=== PATIENT | female | born 1935 | race Caucasian/White ===

== ENCOUNTER 2016-11-15 09:45 | Emergency (ER) | payer MEDICARE, MEDICAID | END 2016-11-15 12:41 | LOC: ER 09:45 | CPT/HCPCS: 36415; 70450; 80053; 80162; 80165; 80184; 80185; 81003; 82947; 85025 ==

== ENCOUNTER 2016-12-01 22:03 | Inpatient (IN) | payer MEDICARE, MEDICAID ==
[~2016-12-01] VITALS: Ht 162.6 cm; Wt 96.3 kg
[2016-12-01] MEDS ORDERED: ACETAMINOPHEN 650 MG SUPP RECTAL ONE (22:37)
[2016-12-01] MEDS ORDERED: ED DILTIAZEM DRIP 125 ML IV ONE (22:38)
[2016-12-01] MEDS ORDERED: CEFTRIAXONE 1 GM VIAL ONE (22:38)
[2016-12-01] MEDS ORDERED: SODIUM CHLORIDE 0.9% 100 ML IV ONE (22:39)
[2016-12-01] MEDS ORDERED: SODIUM CHLORIDE 0.9% 1,000 ML ONE (22:50)
[2016-12-02] VITALS (31 sets, daily range): BP systolic 60–142; RESP 14–25; TEMP 98.4–102.9; Ht 162.6 cm; Wt 96.3 kg
[2016-12-02] MEDS ORDERED: BISACODYL EC 5 MG TAB PO PRN (01:20)
[2016-12-02] MEDS ORDERED: BISACODYL 10 MG SUPP RECTAL PRN (01:20)
[2016-12-02] MEDS ORDERED: ALU/MAG/SIM 30 ML UDC PO PRN (01:20)
[2016-12-02] MEDS ORDERED: ACETAMINOPHEN 325 MG TAB PO PRN (01:20)
[2016-12-02] MEDS ORDERED: SODIUM CHLORIDE 0.9% 1,000 ML IV SCH (01:20)
[2016-12-02] MEDS ORDERED: MAG HYDROX 30 ML UDC PO PRN (01:20)
[2016-12-02] MEDS ORDERED: SALINE FLUSH 10 ML FLUSH PRN (01:20)
[2016-12-02] MEDS ORDERED: PHARMACY TO DOSE VANCOMYCIN IV SCH (01:30)
[2016-12-02] MEDS ORDERED: PHARMACY TO DOSE MERREM XX SCH (01:30)
[2016-12-02] MEDS ORDERED: VANCOMYCIN 2,000 MG in SODIUM CHLORIDE 0.9% 500 ML IV ONE (02:15)
[2016-12-02] MEDS: NEB-XOPENEX 1.25 MG/3 ML INH SCH ×6 (03:50→22:32)
[2016-12-02] MEDS ORDERED: MISSING DOSE XX ONE (04:45)
[2016-12-02] MEDS: CARDIZEM 1 MG/ML DRIP 125 ML IV SCH (04:58)
[2016-12-02] MEDS ORDERED: OPTIRAY 350 100 ML VIAL HMH IV ONE (05:51)
[2016-12-02] MEDS: SODIUM CHLORIDE 0.9% FLUSH BAG 500 ML IV SCH (06:49)
[2016-12-02] MEDS: LEVOTHYROXINE 0.15 MG TAB PO SCH (06:49)
[2016-12-02] MEDS ORDERED: ENOXAPARIN 40 MG/0.4 ML SYR SUBQ SCH (09:00)
[2016-12-02] MEDS ORDERED: DIVALPROEX DR 250 MG TAB PO SCH (09:00)
[2016-12-02] MEDS: SALINE FLUSH 10 ML FLUSH SCH ×2 (09:03→19:59)
[2016-12-02] MEDS: FAMOTIDINE 20 MG INJ IV SCH ×2 (09:05→20:00)
[2016-12-02] MEDS: ENOXAPARIN 40 MG/0.4 ML SYR SUBQ SCH (09:11)
[2016-12-02] MEDS ORDERED: SODIUM CHLORIDE 0.9% 250 ML IV ONE (12:15)
[2016-12-02] MEDS: VALPROATE 250 MG in SODIUM CHLORIDE 0.9% 50 ML IV SCH ×2 (14:10→19:59)
[2016-12-02] MEDS: VANCOMYCIN 1,250 MG in SODIUM CHLORIDE 0.9% 250 ML IV SCH (16:05)
[2016-12-03] VITALS (35 sets, daily range): BP systolic 89–141; RESP 14–26; TEMP 97.4–100.1
[2016-12-03] MEDS ORDERED: MISSING DOSE XX ONE (02:25)
[2016-12-03] MEDS: NEB-XOPENEX 1.25 MG/3 ML INH SCH ×6 (02:33→22:23)
[2016-12-03] MEDS: VANCOMYCIN 1,250 MG in SODIUM CHLORIDE 0.9% 250 ML IV SCH ×2 (03:58→15:20)
[2016-12-03] MEDS: CARDIZEM 1 MG/ML DRIP 125 ML IV SCH ×2 (03:59→10:00)
[2016-12-03] MEDS: LEVOTHYROXINE 0.15 MG TAB PO SCH (05:49)
[2016-12-03] MEDS: SODIUM CHLORIDE 0.9% FLUSH BAG 500 ML IV SCH (05:51)
[2016-12-03] MEDS: SALINE FLUSH 10 ML FLUSH SCH ×2 (07:11→20:20)
[2016-12-03] MEDS: VALPROATE 250 MG in SODIUM CHLORIDE 0.9% 50 ML IV SCH ×2 (09:08→20:21)
[2016-12-03] MEDS: FAMOTIDINE 20 MG INJ IV SCH ×2 (09:09→20:20)
[2016-12-03] MEDS: ENOXAPARIN 40 MG/0.4 ML SYR SUBQ SCH (09:09)
[2016-12-03] MEDS: DILTIAZEM 60 MG TAB PO SCH ×2 (11:58→20:20)
[2016-12-03] MEDS: PANTOPRAZOLE 40 MG TAB PO SCH (18:29)
[2016-12-04] VITALS (23 sets, daily range): BP systolic 101–158; RESP 18–20; TEMP 97.6–98.5
[2016-12-04] MEDS: NEB-XOPENEX 1.25 MG/3 ML INH SCH ×5 (02:24→19:56)
[2016-12-04] MEDS: SODIUM CHLORIDE 0.9% FLUSH BAG 500 ML IV SCH (05:41)
[2016-12-04] MEDS: PANTOPRAZOLE 40 MG TAB PO SCH (05:42)
[2016-12-04] MEDS: LEVOTHYROXINE 0.15 MG TAB PO SCH (05:42)
[2016-12-04] MEDS ORDERED: MAGNEVIST 20ML IV ONE (07:08)
[2016-12-04] MEDS ORDERED: MISSING DOSE XX ONE (07:40)
[2016-12-04] MEDS: CARDIZEM 1 MG/ML DRIP 125 ML IV SCH (08:10)
[2016-12-04] MEDS: VALPROATE 250 MG in SODIUM CHLORIDE 0.9% 50 ML IV SCH ×2 (08:13→20:42)
[2016-12-04] MEDS: DILTIAZEM 60 MG TAB PO SCH (08:14)
[2016-12-04] MEDS: FAMOTIDINE 20 MG INJ IV SCH ×2 (08:14→20:42)
[2016-12-04] MEDS: SALINE FLUSH 10 ML FLUSH SCH ×2 (08:14→20:00)
[2016-12-04] MEDS: ENOXAPARIN 40 MG/0.4 ML SYR SUBQ SCH (08:15)
[2016-12-04] MEDS: VANCOMYCIN 1,500 MG in SODIUM CHLORIDE 0.9% 250 ML IV SCH (15:20)
[2016-12-04] MEDS ORDERED: DILTIAZEM 30 MG TAB PO ONE (20:00)
[2016-12-05] VITALS (40 sets, daily range): BP systolic 94–176; RESP 18–28; TEMP 97.8–99.9
[2016-12-05] MEDS: NEB-XOPENEX 1.25 MG/3 ML INH SCH ×7 (00:02→22:35)
[2016-12-05] MEDS ORDERED: MISSING DOSE XX ONE ×2 (02:20→14:40)
[2016-12-05] MEDS: CARDIZEM 1 MG/ML DRIP 125 ML IV SCH ×2 (02:27→16:47)
[2016-12-05] MEDS: SODIUM CHLORIDE 0.9% FLUSH BAG 500 ML IV SCH (04:50)
[2016-12-05] MEDS ORDERED: Furosemide 40 MG/4 ML VIAL ONE (05:52)
[2016-12-05] MEDS ORDERED: Furosemide 20 MG/2 ML VIAL IV STA (05:54)
[2016-12-05] MEDS: LEVOTHYROXINE 0.15 MG TAB PO SCH (05:57)
[2016-12-05] MEDS: DILTIAZEM CD 120 MG CAP PO SCH ×2 (06:05→08:50)
[2016-12-05] MEDS: VALPROATE 250 MG in SODIUM CHLORIDE 0.9% 50 ML IV SCH ×2 (08:50→21:14)
[2016-12-05] MEDS: SALINE FLUSH 10 ML FLUSH SCH ×2 (08:50→20:00)
[2016-12-05] MEDS: ENOXAPARIN 40 MG/0.4 ML SYR SUBQ SCH (08:51)
[2016-12-05] MEDS: FAMOTIDINE 20 MG INJ IV SCH ×2 (08:51→21:02)
[2016-12-05] MEDS: VANCOMYCIN 1,500 MG in SODIUM CHLORIDE 0.9% 250 ML IV SCH (14:54)
[2016-12-05] MEDS: NEB-BUDESONIDE 0.5 MG INH SCH (19:00)
[2016-12-06] VITALS (19 sets, daily range): BP systolic 99–159; RESP 18–20; TEMP 97.5–98.7
[2016-12-06] MEDS: NEB-XOPENEX 1.25 MG/3 ML INH SCH ×6 (02:28→22:32)
[2016-12-06] MEDS: SODIUM CHLORIDE 0.9% FLUSH BAG 500 ML IV SCH (04:50)
[2016-12-06] MEDS: LEVOTHYROXINE 0.15 MG TAB PO SCH (06:29)
[2016-12-06] MEDS ORDERED: MISSING DOSE XX ONE (06:40)
[2016-12-06] MEDS: NEB-BUDESONIDE 0.5 MG INH SCH ×2 (06:50→18:30)
[2016-12-06] MEDS: VALPROATE 250 MG in SODIUM CHLORIDE 0.9% 50 ML IV SCH ×2 (10:13→20:38)
[2016-12-06] MEDS: DILTIAZEM CD 120 MG CAP PO SCH (10:13)
[2016-12-06] MEDS: ENOXAPARIN 40 MG/0.4 ML SYR SUBQ SCH (10:14)
[2016-12-06] MEDS: SALINE FLUSH 10 ML FLUSH SCH ×2 (10:15→20:00)
[2016-12-06] MEDS: FAMOTIDINE 20 MG INJ IV SCH ×2 (10:15→20:38)
[2016-12-06] MEDS: CARDIZEM 1 MG/ML DRIP 125 ML IV SCH (10:45)
[2016-12-06] MEDS ORDERED: NEB-XOPENEX 1.25 MG/3 ML INH PRN (11:20)
[2016-12-07 03:00] VITALS: BP_SYST 163; RESP 19; TEMP 98
[2016-12-07] MEDS: NEB-XOPENEX 1.25 MG/3 ML INH SCH ×6 (03:08→23:09)
[2016-12-07] MEDS: SODIUM CHLORIDE 0.9% FLUSH BAG 500 ML IV SCH (05:47)
[2016-12-07] MEDS: NEB-BUDESONIDE 0.5 MG INH SCH ×2 (06:41→19:51)
[2016-12-07] MEDS: LEVOTHYROXINE 0.15 MG TAB PO SCH (06:45)
[2016-12-07 07:11] VITALS: BP_SYST 142; RESP 18; TEMP 97.2
[2016-12-07] MEDS: SALINE FLUSH 10 ML FLUSH SCH ×2 (09:32→21:09)
[2016-12-07] MEDS: CEFTRIAXONE 1 GM in SODIUM CHLORIDE 0.9% 50 ML IV SCH (09:32)
[2016-12-07] MEDS: DILTIAZEM CD 120 MG CAP PO SCH (09:33)
[2016-12-07] MEDS: VALPROATE 250 MG in SODIUM CHLORIDE 0.9% 50 ML IV SCH (09:33)
[2016-12-07] MEDS: FAMOTIDINE 20 MG INJ IV SCH (09:33)
[2016-12-07] MEDS: ENOXAPARIN 40 MG/0.4 ML SYR SUBQ SCH (09:34)
[2016-12-07] MEDS ORDERED: DILTIAZEM 30 MG TAB PO ONE (11:45)
[2016-12-07 19:00] VITALS: BP_SYST 142; RESP 18; TEMP 97.7
[2016-12-07] MEDS: VALPROIC ACID 250 MG CAP PO SCH (21:10)
[2016-12-07] MEDS: FAMOTIDINE 20 MG TAB PO SCH (21:10)
[2016-12-07 23:54] VITALS: BP_SYST 132; BP_SYST 142; RESP 18; TEMP 97.7
[2016-12-08] VITALS (7 sets, daily range): BP systolic 120–151; RESP 17–20; TEMP 96.8–98.4
[2016-12-08] MEDS: NEB-XOPENEX 1.25 MG/3 ML INH SCH ×6 (03:27→23:15)
[2016-12-08] MEDS: LEVOTHYROXINE 0.15 MG TAB PO SCH (06:04)
[2016-12-08] MEDS: SODIUM CHLORIDE 0.9% FLUSH BAG 500 ML IV SCH (06:05)
[2016-12-08] MEDS: NEB-BUDESONIDE 0.5 MG INH SCH ×2 (07:31→19:23)
[2016-12-08] MEDS: SALINE FLUSH 10 ML FLUSH SCH ×2 (09:35→20:16)
[2016-12-08] MEDS: ASPIRIN EC 81 MG TAB PO SCH (09:36)
[2016-12-08] MEDS: CEFTRIAXONE 1 GM in SODIUM CHLORIDE 0.9% 50 ML IV SCH (09:36)
[2016-12-08] MEDS: DILTIAZEM CD 180 MG CAP PO SCH (09:36)
[2016-12-08] MEDS: VALPROIC ACID 250 MG CAP PO SCH ×2 (09:36→20:17)
[2016-12-08] MEDS: ENOXAPARIN 40 MG/0.4 ML SYR SUBQ SCH (09:37)
[2016-12-08] MEDS: METOPROLOL TART 25 MG TAB PO SCH ×2 (12:54→20:17)
[2016-12-08] MEDS: APIXABAN 5 MG TAB PO SCH (20:17)
[2016-12-08] MEDS: FAMOTIDINE 20 MG TAB PO SCH (20:17)
[2016-12-08] MEDS: SACCHA BOULARDII 250MG CAP PO SCH (20:17)
[2016-12-09] MEDS: NEB-XOPENEX 1.25 MG/3 ML INH SCH ×6 (02:58→22:52)
[2016-12-09 03:31] VITALS: BP_SYST 155; RESP 20; TEMP 98.3
[2016-12-09] MEDS: SODIUM CHLORIDE 0.9% FLUSH BAG 500 ML IV SCH (05:56)
[2016-12-09] MEDS: LEVOTHYROXINE 0.15 MG TAB PO SCH (05:56)
[2016-12-09] MEDS: NEB-BUDESONIDE 0.5 MG INH SCH ×2 (07:19→18:39)
[2016-12-09 08:13] VITALS: BP_SYST 137; RESP 19; TEMP 98.5
[2016-12-09] MEDS: SACCHA BOULARDII 250MG CAP PO SCH ×2 (08:21→21:25)
[2016-12-09] MEDS: APIXABAN 5 MG TAB PO SCH ×2 (08:21→21:25)
[2016-12-09] MEDS: VALPROIC ACID 250 MG CAP PO SCH ×2 (08:21→21:25)
[2016-12-09] MEDS: SALINE FLUSH 10 ML FLUSH SCH ×2 (08:21→21:25)
[2016-12-09] MEDS: METOPROLOL TART 25 MG TAB PO SCH ×2 (08:21→21:25)
[2016-12-09] MEDS: ASPIRIN EC 81 MG TAB PO SCH (08:21)
[2016-12-09] MEDS: DILTIAZEM CD 180 MG CAP PO SCH (08:21)
[2016-12-09] MEDS: CEFTRIAXONE 1 GM in SODIUM CHLORIDE 0.9% 50 ML IV SCH (08:21)
[2016-12-09 11:41] VITALS: BP_SYST 142; RESP 19; TEMP 98.4
[2016-12-09] MEDS: Furosemide 20 MG TAB PO SCH (13:47)
[2016-12-09] MEDS: KCL CR 20 MEQ TAB PO SCH ×2 (13:48→21:25)
[2016-12-09] MEDS: MICONAZOLE 2% PWD TOPICAL SCH ×2 (13:48→21:26)
[2016-12-09 15:48] VITALS: BP_SYST 149; RESP 20; TEMP 98.1
[2016-12-09 19:29] VITALS: BP_SYST 150; RESP 18; TEMP 98.3
[2016-12-09] MEDS: FAMOTIDINE 20 MG TAB PO SCH (21:25)
[2016-12-09 23:31] VITALS: BP_SYST 165; RESP 17; TEMP 99.1
[2016-12-10] MEDS: NEB-XOPENEX 1.25 MG/3 ML INH SCH ×4 (03:13→14:10)
[2016-12-10 04:06] VITALS: BP_SYST 153; RESP 18; TEMP 98.5
[2016-12-10] MEDS: SODIUM CHLORIDE 0.9% FLUSH BAG 500 ML IV SCH (05:18)
[2016-12-10] MEDS: LEVOTHYROXINE 0.15 MG TAB PO SCH (06:09)
[2016-12-10] MEDS: NEB-BUDESONIDE 0.5 MG INH SCH (06:37)
[2016-12-10 07:31] VITALS: BP_SYST 155; RESP 18; TEMP 98
[2016-12-10] MEDS: SALINE FLUSH 10 ML FLUSH SCH (08:26)
[2016-12-10] MEDS: VALPROIC ACID 250 MG CAP PO SCH (08:26)
[2016-12-10] MEDS: KCL CR 20 MEQ TAB PO SCH (08:26)
[2016-12-10] MEDS: Furosemide 20 MG TAB PO SCH (08:26)
[2016-12-10] MEDS: SACCHA BOULARDII 250MG CAP PO SCH (08:26)
[2016-12-10] MEDS: DILTIAZEM CD 180 MG CAP PO SCH (08:27)
[2016-12-10] MEDS: CEFTRIAXONE 1 GM in SODIUM CHLORIDE 0.9% 50 ML IV SCH (08:27)
[2016-12-10] MEDS: ASPIRIN EC 81 MG TAB PO SCH (08:27)
[2016-12-10] MEDS: APIXABAN 5 MG TAB PO SCH (08:27)
[2016-12-10] MEDS: METOPROLOL TART 25 MG TAB PO SCH (08:27)
[2016-12-10] MEDS: MICONAZOLE 2% PWD TOPICAL SCH (08:35)
[2016-12-10 11:11] VITALS: BP_SYST 147; RESP 18; TEMP 98.2
[2016-12-10] MEDS ORDERED: HALOPERIDOL 5 MG/ML VIAL IM ONE (14:00)
[2016-12-10 14:38] VITALS: BP_SYST 125; RESP 18; TEMP 97.9
[2016-12-10 15:44] VITALS: BP_SYST 125; RESP 18; TEMP 97.9
[2016-12-10] MEDS ORDERED: HALOPERIDOL 1 MG TAB PO SCH (21:00)
[2016-12-10] MEDS ORDERED: METOPROLOL TART 50 MG TAB PO SCH (21:00)
== END 2016-12-10 18:26 | DRG 871 ==
LOC: CANRESERV → ENRESERVDT → ENRESERVTM → ER 22:03 → ENPENDDIS 12-02 01:20 → EMR 12-02 01:20 → ICU 12-02 02:31 → PCU 12-03 10:43 → PCU2 12-07 15:53
PROVIDERS: ADMIT Internal Medicine; ATTEND Internal Medicine
DX: A41.9 Sepsis, unspecified organism (principal); G93.41 Metabolic encephalopathy; J18.9 Pneumonia, unspecified organism; K52.1 Toxic gastroenteritis and colitis; I48.91 Unspecified atrial fibrillation; G40.909 Epilepsy, unspecified, not intractable, without status epilepticus; G30.9 Alzheimer's disease, unspecified; F02.80 Dementia in other diseases classified elsewhere, unspecified severity, without behavioral disturbance, psychotic disturbance, mood disturbance, and anxiety; E03.9 Hypothyroidism, unspecified; I10 Essential (primary) hypertension; E78.5 Hyperlipidemia, unspecified; E66.01 Morbid (severe) obesity due to excess calories; Z68.36 Body mass index [BMI] 36.0-36.9, adult; K21.9 Gastro-esophageal reflux disease without esophagitis; Y95 Nosocomial condition; R33.9 Retention of urine, unspecified; Z66 Do not resuscitate; T36.95XA Adverse effect of unspecified systemic antibiotic, initial encounter; Z86.73 Personal history of transient ischemic attack (TIA), and cerebral infarction without residual deficits
CPT/HCPCS: 36415; 36600; 70450; 70553; 71010; 71260; 74177; 74230; 80048; 80053; 80162; 80165; 80202; 81001; 82140; 82553; 82803; 82947; 83018; 83605; 83880; 84145; 84439; 84443; 84484; 85025; 85379; 86038; 86039; 86225; 86235; 86618; 86738; 87040; 87088; 87278; 87299; 87493; 87804; 93306; 94640; 94660; 95819; 96365; 96366; 96367; 96375; 96376; 99223; 99232; 99233